=== PATIENT | female | born 1945 | race Caucasian/White ===

== ENCOUNTER 2017-01-15 10:12 | Emergency (ER) | payer MEDICARE ==
[~2017-01-15] VITALS: Ht 165.1 cm; Wt 76.7 kg
[2017-01-15 10:12] VITALS: BP 150/77
== END 2017-01-15 11:59 | disposition home or self-care (01) ==
LOC: ER 10:21
DX: S82.832A Other fracture of upper and lower end of left fibula, initial encounter for closed fracture (principal); I10 Essential (primary) hypertension; W01.0XXA Fall on same level from slipping, tripping and stumbling without subsequent striking against object, initial encounter; Y92.89 Other specified places as the place of occurrence of the external cause; Y93.89 Activity, other specified; Y99.8 Other external cause status
CPT/HCPCS: 73610-TC; A4606; Z7610

== ENCOUNTER 2017-01-22 11:06 | Day surgery (SDC) | payer MEDICARE ==
[2017-01-22] MEDS ORDERED: CEFAZOLIN SODIUM/DEXTROSE,ISO 50 ML IV ONE (11:15)
[2017-01-22] MEDS ORDERED: MIDAZOLAM HCL 2 MG/2ML VIAL ONE (12:54)
[2017-01-22] MEDS ORDERED: FENTANYL PF 100MCG/2ML AMPUL ONE (12:54)
[2017-01-22] MEDS ORDERED: BACITRACIN 50000 UNITS/VIAL ONE (13:07)
[2017-01-22] MEDS ORDERED: BUPIVACAINE 0.5 % PF 150 MG/30 ML VIAL ONE (13:33)
[2017-01-22] MEDS ORDERED: HYDROCODONE/APAP 10/325MG 1 EA TABLET ONE (14:24)
[2017-01-22] MEDS ORDERED: ANESTHESIA TRAY IN PYXIS 1 EA TRAY MC ONE (14:52)
[2017-01-22] MEDS ORDERED: HYDROCODONE/APAP 10/325MG 1 EA TABLET PO PRN (17:00)
== END 2017-01-22 16:09 | disposition home or self-care, planned readmission (81) ==
LOC: DS 11:06
PROVIDERS: ATTEND Student in an Organized Health Care Education/Training Program
DX: S82.62XA Displaced fracture of lateral malleolus of left fibula, initial encounter for closed fracture (principal); X58.XXXA Exposure to other specified factors, initial encounter; Y93.89 Activity, other specified; Y92.89 Other specified places as the place of occurrence of the external cause; Y99.9 Unspecified external cause status; I10 Essential (primary) hypertension; E78.5 Hyperlipidemia, unspecified; Z90.710 Acquired absence of both cervix and uterus; Z90.49 Acquired absence of other specified parts of digestive tract
CPT/HCPCS: 27792; C1713; L8699; 73600-TC; A4606; A6253; A6402; J0690; J1100; J1885; J2250; J2405; J2704; J3010; J3490